=== PATIENT | female | born 1945 | race Caucasian/White ===

== ENCOUNTER 2017-05-05 13:40 | Day surgery (SDC) | payer MEDICARE, BC ==
[~2017-05-05 13:40] MED LIST: EPINEPHRINE INJ 1 MG/10 ML DISP.SYRIN ONE; FLUMAZENIL INJ 0.5 MG/5 ML VIAL ONE; GLUCAGON,HUMAN RECOMB 1 MG INJ ONE; NALOXONE HCL INJ/PF 0.4 MG/1 ML SDV ONE
[2017-05-05] MEDS: MIDAZOLAM 2 MG/2 ML INJ ONE ×6 (15:26→16:04)
[2017-05-05] MEDS: FENTANYL CITRATE INJ/PF 100 MCG/2 ML AMPUL ONE ×2 (15:28→16:14)
[2017-05-05] MEDS ORDERED: INDOMETHACIN 50 MG SUPP.RECT PR ONE (16:30)
--- NOTE | 2017-05-05 16:46 | Operative Report ---
Operative Report DATE OF SURGERY: 05/05/17 Operative Report: Pre-op diagnosis: Recurrent chest pain, abnormal liver function tests and dilated biliary tree Post-op diagnosis: 1. Markedly dilated common bile duct and moderately dilated intrahepatic ducts 2. Common bile duct stone 3. Normal pancreatic duct Surgery: ERCP with sphincterotomy, attempted stone extraction and stent placement Medications: Versed 8mg Fentanyl 150mcg IV push Tissue removed: None Procedure: After informed consent obtained from patient, the throat was sprayed with Hurricane and conscious sedation was achieved. The ERCP endoscope was then inserted into the esophagus blindly and advanced into the stomach. The duodenum was entered and the ampulla was identified. Using the triple-lumen sphincterotomy catheter the pancreatic duct was initially cannulated. A pancreatogram was normal. The common bile duct was then freely cannulated. A cholangiogram was obtained which showed marked dilation of the common bile ducts and moderate dilation of the intrahepatic ducts. A good sized sphincterotomy was then performed using the endocut mode. The catheter was removed over the guidewire before a 9-12 mm balloon catheter was inserted. The balloon was inflated to 12 mm in the proximal common bile duct and pulled down the duct. Some sludge was extracted but I could not grasp the stone with the balloon as the balloon was smaller than the diameter of the bile ducts. A 3 cm basket wire was then used but again it was difficult to grab the stone within the wire strands. A larger 15 mm balloon was used which I was able to use to pull the stone to the distal common bile duct but a stone also kept slipping off the balloon. Patient started to get more agitated and I decided to place a 5 cm 10 [place] stent. Patient tolerated procedure well. Findings Common bile duct: Markedly dilated with a small round stone. The stone had an oblong opacity in the middle that may be a surgical clip. Intrahepatic ducts: Moderate dilation Pancreatic duct: Normal Plan: We will allow bile flow to improve and hopefully leading to a reduction in the size of the common bile duct. Will repeat ERCP in 6-8 weeks with removal of the stone. Indometacin 100 mg was given per rectum OPERATION: .
[2017-05-05] MEDS ORDERED: ONDANSETRON HCL INJ/PF 4 MG/2 ML SDV ONE ×2 (17:16→17:17)
[2017-05-05 18:02] VITALS: BP 161/74
--- NOTE | 2017-05-05 20:49 | RADIOLOGY REPORT (SQ) ---
EXAM DESCRIPTION: ENDO CATH BILI/PANCREATIC COMPLETED DATE/TIME: 05/05/2017 4:42 pm REASON FOR STUDY: ERCP R94.5 ABNORMAL RESULTS OF LIVER FUNCTION STUDIES COMPARISON: None. FLUOROSCOPY TIME: 10.7 MINUTES TECHNIQUE: Intra-operative images acquired during surgical procedure to evaluate progress. NUMBER OF IMAGES: 10 images. LIMITATIONS: None. FINDINGS: Fluoroscopic images during ERCP demonstrates opacification of the intra and extrahepatic b iliary ducts and the pancreatic duct. There is significant dilatation of the common bile duct and in trahepatic ducts. Subsequent images demonstrates balloon sweeping of the common bile duct and placem ent of stent. No gross complication. IMPRESSION: IMAGE(S) OBTAINED DURING PROCEDURE. COMMENT: Quality ID [id number]: Final reports for procedures using fluoroscopy that document radiation exp osure indices, or exposure time and number of fluorographic images (if radiation exposure indices are not available) Please consult full operative report of the attending physician for description of the procedure. TECHNICAL DOCUMENTATION: JOB ID: [id number] [employer]- All Rights Reserved
== END 2017-05-05 17:50 | disposition home or self-care (01) ==
LOC: END 13:40
PROVIDERS: ATTEND Internal Medicine Gastroenterology
PROC: 0FC98ZZ Extirpation of Matter from Common Bile Duct, Via Natural or Artificial Opening Endoscopic (ICD-10-PCS; principal; 2017-05-05 14:30)
PROC: 0F798ZZ Dilation of Common Bile Duct, Via Natural or Artificial Opening Endoscopic (ICD-10-PCS; 2017-05-05 14:30)
PROC: 0F758DZ Dilation of Right Hepatic Duct with Intraluminal Device, Via Natural or Artificial Opening Endoscopic (ICD-10-PCS; 2017-05-05 14:30)
DX: K80.50 Calculus of bile duct without cholangitis or cholecystitis without obstruction (principal); K83.8 Other specified diseases of biliary tract; K21.9 Gastro-esophageal reflux disease without esophagitis; K58.9 Irritable bowel syndrome, unspecified; I10 Essential (primary) hypertension; Z79.899 Other long term (current) drug therapy
CPT/HCPCS: 43264; 43262; 43274; 74330; C2617; J2250; J3010; J1610; J2405; A9270; J0171; J2310; J3490

== ENCOUNTER 2017-09-19 14:28 | Day surgery (SDC) | payer MEDICARE, BC ==
[2017-09-19] MEDS ORDERED: EPINEPHRINE INJ 1 MG/10 ML DISP.SYRIN ONE (15:12)
[2017-09-19] MEDS ORDERED: GLUCAGON,HUMAN RECOMB 1 MG INJ ONE (15:12)
[2017-09-19 15:32] LABS: ALANINE AMINOTRANSFERASE 27 U/L (9-52); ALBUMIN 4.7 g/dL (3.5-5.0); ALKALINE PHOSPHATASE 66 U/L (38-126); ANION GAP 11 (5-19); ASPARTATE AMINO TRANSFERASE 29 U/L (14-36); BILIRUBIN,DIRECT 0.2 mg/dL (0.0-0.4); BILIRUBIN,TOTAL 0.9 mg/dL (0.2-1.3); BLOOD UREA NITROGEN 11 mg/dL (7-20); CALCIUM 10.8 mg/dL (8.4-10.2); CARBON DIOXIDE 27 mmol/L (22-30); CHLORIDE 95 mmol/L (98-107); GLUCOSE 84 mg/dL (75-110); POTASSIUM 3.7 mmol/L (3.6-5.0); SODIUM 132.6 mmol/L (137-145); TOTAL PROTEIN 6.9 g/dL (6.3-8.2)
[2017-09-19] MEDS ORDERED: LIDOCAINE 2% INJ-PF (20 MG/ML) 10 ML AMPUL ONE (15:40)
[2017-09-19] MEDS ORDERED: FENTANYL CITRATE INJ/PF 100 MCG/2 ML AMPUL ONE ×2 (15:40→16:55)
[2017-09-19] MEDS ORDERED: MIDAZOLAM 2 MG/2 ML INJ ONE (15:41)
[2017-09-19] MEDS ORDERED: PROPOFOL INJ 200 MG/20 ML VIAL IV ONE (15:41)
--- NOTE | 2017-09-19 17:26 | Operative Report ---
Operative Report DATE OF SURGERY: 09/19/17 Operative Report: Pre-op diagnosis: History of common bile duct stone status post stent placement Post-op diagnosis: 1. CBD stone 2. Dilated biliary tree Surgery: ERCP with stent removal, and stone extraction Medications: As per anesthesia Tissue removed: None Procedure: After informed consent obtained from patient, the throat was sprayed with Hurricane and conscious sedation was achieved. The ERCP endoscope was then inserted into the esophagus blindly and advanced into the stomach. The duodenum was entered and the ampulla was identified. Using the balloon catheter the pancreatic duct was initially cannulated. A partial pancreatogram was normal. The catheter was then passed freely into the common bile duct where a cholangiogram shows a diffusely dilated common bile duct with mild dilation of the intrahepatic ducts. A filling defect with a central linear opacity was identified in the proximal common bile duct. This was difficult to remove using the balloon catheter as the stone was sliding off the balloon. A 2.5 cm basket catheter was then inserted into the common bile duct and after trying for a while I was able to grasp the stone and pulled it out of the duct. A balloon occlusion cholangiogram was normal. Patient tolerated procedure well. Findings Common bile duct: Moderately dilated. 8-10 mm black, smooth stone Intrahepatic ducts: Mildly dilated Pancreatic duct: Normal proximal duct Plan: Follow-up as needed. LFTs were normal today OPERATION: .
--- NOTE | 2017-09-19 17:50 | RADIOLOGY REPORT (SQ) ---
EXAM DESCRIPTION: ENDO CATH/BILIARY DUCT COMPLETED DATE/TIME: 09/19/2017 5:21 pm REASON FOR STUDY: ERCP K83.8 OTHER SPECIFIED DISEASES OF BILIARY TRACT COMPARISON: None. FLUOROSCOPY TIME: 7.7 minutes 11 images saved to PACS. TECHNIQUE: Intra-operative images acquired during surgical procedure to evaluate progress. NUMBER OF IMAGES: 11 LIMITATIONS: None. FINDINGS: Selected images from ERCP. There is opacification of dilated common bile duct. IMPRESSION: IMAGE(S) OBTAINED DURING PROCEDURE. COMMENT: Quality ID [id number]: Final reports for procedures using fluoroscopy that document radiation exp osure indices, or exposure time and number of fluorographic images (if radiation exposure indices are not available) Please consult full operative report of the attending physician for description of the procedure. TECHNICAL DOCUMENTATION: JOB ID: [id number] [employer]- All Rights Reserved
[2017-09-19] MEDS: MORPHINE SULFATE 10 MG/ML INJ ONE ×3 (18:00→18:30)
[2017-09-19] MEDS ORDERED: ASPIRIN 325 MG TABLET ONE (18:04)
[2017-09-19] MEDS ORDERED: SIMETHICONE 80 MG TAB.CHEW PO ONE (18:15)
[2017-09-19 18:41] LABS: ALANINE AMINOTRANSFERASE 32 U/L (9-52); ALBUMIN 4.2 g/dL (3.5-5.0); ALKALINE PHOSPHATASE 62 U/L (38-126); ANION GAP 8 (5-19); ASPARTATE AMINO TRANSFERASE 31 U/L (14-36); BILIRUBIN,DIRECT 0.2 mg/dL (0.0-0.4); BILIRUBIN,TOTAL 0.8 mg/dL (0.2-1.3); BLOOD UREA NITROGEN 10 mg/dL (7-20); CALCIUM 10.4 mg/dL (8.4-10.2); CARBON DIOXIDE 29 mmol/L (22-30); CHLORIDE 96 mmol/L (98-107); CREATINE KINASE 129 U/L (30-135); GLUCOSE 99 mg/dL (75-110); PHOSPHORUS 2.9 mg/dL (2.5-4.5); POTASSIUM 3.9 mmol/L (3.6-5.0); SODIUM 133.3 mmol/L (137-145); TOTAL PROTEIN 6.1 g/dL (6.3-8.2)
[2017-09-19 18:52] LABS: CREATINE KINASE MB 2.15 ng/mL (<4.55)
[2017-09-19 18:55] LABS: TROPONIN I < 0.012 ng/mL
--- NOTE | 2017-09-19 20:26 | EKG REPORT ---
SEVERITY:- NORMAL ECG - SINUS RHYTHM : Confirmed by: Merle Wright 19-Sep-2017 20:26:11
--- NOTE | 2017-09-19 20:26 | EKG REPORT ---
SEVERITY:- ABNORMAL ECG - SINUS RHYTHM : Confirmed by: Merle Wright 19-Sep-2017 20:26:01
[2017-09-19] MEDS ORDERED: MORPHINE SULFATE 10 MG/ML INJ IV PRN (20:57)
[2017-09-19] MEDS ORDERED: ONDANSETRON HCL INJ/PF 4 MG/2 ML SDV IV PRN (20:58)
[2017-09-19] MEDS ORDERED: NORMAL SALINE 500 ML IV ONE (21:00)
[2017-09-19] MEDS ORDERED: LANSOPRAZOLE 30 MG TAB.RAP.DR PO ONE (21:30)
[2017-09-19] MEDS: NORMAL SALINE 1000 ML 1,000 ML IV PRN (21:41)
[2017-09-20] MEDS: SUCRALFATE 1 GM TABLET PO SCH ×2 (01:12→05:00)
[2017-09-20] MEDS: NORMAL SALINE 1000 ML 1,000 ML IV PRN (02:34)
[2017-09-20] MEDS ORDERED: LANSOPRAZOLE 30 MG TAB.RAP.DR PO SCH (06:00)
[2017-09-20 06:51] LABS: HEMATOCRIT 33.7 % (36.0-47.0); HEMOGLOBIN 11.7 g/dL (12.0-15.5); MEAN CORPUSCULAR HEMOGLOBIN 32.2 pg (27.0-33.4); MEAN CORPUSCULAR HGB CONC 34.7 g/dL (32.0-36.0); MEAN CORPUSCULAR VOLUME 93 fl (80-97); PLATELET COUNT 204 10^3/uL (150-450); RED BLOOD COUNT 3.63 10^6/uL (3.72-5.28); RED CELL DISTRIBUTION WIDTH 12.8 % (11.5-14.0); WHITE BLOOD COUNT 9.8 10^3/uL (4.0-10.5)
[2017-09-20 07:10] LABS: ALANINE AMINOTRANSFERASE 28 U/L (9-52); ALBUMIN 3.2 g/dL (3.5-5.0); ALKALINE PHOSPHATASE 48 U/L (38-126); ASPARTATE AMINO TRANSFERASE 30 U/L (14-36); BILIRUBIN,DIRECT 0.2 mg/dL (0.0-0.4); BILIRUBIN,TOTAL 0.6 mg/dL (0.2-1.3); LIPASE 91.4 U/L (23-300); TOTAL PROTEIN 5.1 g/dL (6.3-8.2)
[2017-09-20 09:10] VITALS: BP 124/66
== END 2017-09-20 12:00 | disposition home or self-care (01) ==
LOC: OROUT 14:28 → 2N 20:36 → OROUT 09-20 12:00
PROVIDERS: ATTEND Internal Medicine Gastroenterology
PROC: 0FPB8DZ Removal of Intraluminal Device from Hepatobiliary Duct, Via Natural or Artificial Opening Endoscopic (ICD-10-PCS; principal; 2017-09-19 14:45)
PROC: 0FC98ZZ Extirpation of Matter from Common Bile Duct, Via Natural or Artificial Opening Endoscopic (ICD-10-PCS; 2017-09-19 14:45)
DX: K83.8 Other specified diseases of biliary tract (principal); K80.50 Calculus of bile duct without cholangitis or cholecystitis without obstruction; I10 Essential (primary) hypertension; D64.9 Anemia, unspecified; K21.9 Gastro-esophageal reflux disease without esophagitis; Z79.899 Other long term (current) drug therapy
CPT/HCPCS: 43275; 43264; 36415; 82553; 82550; 83690; 83735; 84100; 85027; 80076; 80053; 84484; 74328; 93005; 93010; J2250; A9270 ×5; J2270; J2405; J7030 ×2; J2704; J3490; 732; J0171; J1610; J3010

== ENCOUNTER 2018-01-11 23:13 | Emergency (ER) | payer MEDICARE, BC ==
[2018-01-11 23:20] VITALS: BP 164/83
--- NOTE | 2018-01-12 00:05 | ER Document Report ---
ED GI/ - General Mode of Arrival: Ambulatory Information source: Patient TRAVEL OUTSIDE OF THE [place] IN LAST 30 DAYS: No - General Chief Complaint: Abdominal Pain Stated Complaint: ABDOMINAL PAIN Time Seen by Provider: 01/11/18 23:29 Notes: Patient is a 72 year old female with a history of HTN and chronic constipation presents to the emergency department accompanied by family complaining of right lower abdominal pain, diffuse abdominal cramping and constipation onset today. Patient states that it has been hard for her to have a bowel movement stating that she frequently has the urge to have a bowel movement but is unable to do so. Patient states she did have gas and diarrhea today and her last bowel movement before today was 3 days ago which was described as explosive diarrhea with associated vomiting. Patient states she has always been a very gassy person further stating she is always burping as well as passing gas. Patient denies any fevers. Patient was previously prescribed narcotics although she discontinued taking them 5 days ago after receiving an epidural steroid injection to the L4-L5 at [facility] pain management. Patient has also had 2 CT scans within the last year which has showed no significant abnormalities. She also mentions having an ERCP, removing stones which provided a significant amount of relief of chronic abdominal pain. Patient is currently taking Citrucel, Laxilose and Losartan. (ALEXI WALDRON) - Related Data Allergies/Adverse Reactions: No Known Allergies Allergy (Verified 09/19/17 15:16) Past Medical History - General Information source: Patient - Social History Smoking Status: Former Smoker Cigarette use (# per day): No Chew tobacco use (# tins/day): No Smoking Education Provided: No Frequency of alcohol use: None Family History: Reviewed & Not Pertinent - Past Medical History Cardiac Medical History: Reports: Hx Hypertension Endocrine Medical History: Reports: Other GI Medical History: Reports: Other - Cholecystectomy Musculoskeltal Medical History: Reports Hx Arthritis Past Surgical History: Reports: Hx Hysterectomy, Hx Orthopedic Surgery - Left Hip - Immunizations Hx Diphtheria, Pertussis, Tetanus Vaccination: Yes Review of Systems - Review of Systems Constitutional: No symptoms reported EENT: No symptoms reported Cardiovascular: No symptoms reported Respiratory: No symptoms reported Gastrointestinal: See HPI, Abdominal pain, Diarrhea, Nausea, Vomiting, Constipation Genitourinary: No symptoms reported Female Genitourinary: No symptoms reported Musculoskeletal: No symptoms reported Skin: No symptoms reported Hematologic/Lymphatic: No symptoms reported Neurological/Psychological: No symptoms reported -: Yes All other systems reviewed and negative Physical Exam - Vital signs Vitals: Temp Pulse Resp BP Pulse Ox 98.3 F 71 20 164/83 H 98 01/11/18 23:19 01/11/18 23:19 01/11/18 23:19 01/11/18 23:19 01/11/18 23:19 - Notes Notes: GENERAL: Alert, interacts well. No acute distress. HEAD: Normocephalic, atraumatic. EYES: Pupils equal, round, and reactive to light. Extraocular movements intact. ENT: Oral mucosa moist, tongue midline. NECK: Full range of motion. Supple. Trachea midline. No Bruits. LUNGS: Expiratory wheezes. No rales or rhonchi. No respiratory distress. HEART: Regular rate and rhythm. No murmurs, gallops, or rubs. ABDOMEN: Soft, tender to palpation to the RLQ, hyperresonant to percussion. Hyperactive bowel sounds. EXTREMITIES: Moves all 4 extremities spontaneously. NEUROLOGICAL: Alert and oriented x3. Normal speech. PSYCH: Normal affect, normal mood. SKIN: Warm, dry, normal turgor. No rashes or lesions noted. (ALEXI WALDRON) - Vital Signs Vital signs: Temp Pulse Resp BP Pulse Ox 98.3 F 71 20 164/83 H 98 01/11/18 23:19 01/11/18 23:19 01/11/18 23:19 01/11/18 23:19 01/11/18 23:19 Discharge - Discharge Clinical Impression: Abdominal bloating with cramps, Anxiety Condition: Stable Disposition: HOME, SELF-CARE Additional Instructions: Anxiety: The physician feels that some of your health problems are being caused by anxiety. Anxiety affects your health in many ways. Anxiety alone can cause palpitations, sweats, chest pains, abdominal pains, shortness of breath, and headaches. It contributes to ulcer disease, high blood pressure, irritable bowel syndrome, and has been shown to cause flare-ups of many other diseases. Anxiety is not a simple disorder to treat. If the anxiety is due to recent life stresses, you may simply need time to "work through" the changes. If the anxiety is due to an underlying unhappiness with yourself or due to psychiatric disturbance, professional help will be needed. Your physician can refer you for further help if needed. Anti-anxiety medication is occasionally given if the stress is acute or if you are having trouble sleeping. Chronic or frequent use of these medications is not a good idea because the body becomes reliant on it, preventing you from dealing with life's normal stresses. Abdominal Pain: There are many causes of abdominal pain. Pain can mean a serious problem requiring surgery (such as appendicitis). It can also be an innocent problem that goes away on its own (such as a viral infection). Often, time must pass to determine the cause of pain. The physician does not feel that hospitalization is necessary, at present. Things may change within the next 24 hours. Call the doctor or come back for re- examination if any problems occur, such as: (1) Pain that becomes more severe, steady, or becomes concentrated in one specific area. Also, pain that is more severe with movement or coughing. (2) Vomiting that persists or becomes more frequent. (3) Blood in the vomitus, urine, or bowel movements. Blood in the stool may have a tarry or black appearance. (4) Shaking chills or fever greater than 100 degrees F. (5) The abdomen becomes more distended or swollen. (6) Bowel movements cease. (7) Failure to improve as expected. Your abdominal x-ray showed considerable amount of gas in the intestines. This is a likely source for your cramps and discomfort. You also do seem to have a very amount of anxiety about your abdominal cramps and constipation issues. In addition to the MiraLAX, try taking something like Charcocaps to reduce the amount of intestinal gas. Take the Xanax as prescribed for anxiety or sleep for the next few days if needed. Follow-up with Dr. Eweje next week and with your primary care provider for recheck. RETURN TO THE EMERGENCY ROOM IF ANY NEW OR WORSENING SYMPTOMS. Prescriptions: Alprazolam [Xanax 0.25 mg Tablet] 0.25 mg PO Q8 PRN #15 tablet PRN Reason: Anxiety Referrals: JOSE DANGELO MD [ACTIVE STAFF] - Follow up as needed Scribe Attestation: 01/12/18 00:48 I personally performed the services described in the documentation, reviewed and edited the documentation which was dictated to the scribe in my presence, and it accurately records my words and actions. (ANGEL HART) Scribe Documentation - Scribe Written by Toby:: Toby Guerrero, 01/12/2018 00:40 acting as scribe for :: Erick
[2018-01-12] MEDS ORDERED: ALPRAZOLAM 0.5 MG TABLET PO ONE (00:42)
--- NOTE | 2018-01-12 03:48 | RADIOLOGY REPORT (SQ) ---
EXAM DESCRIPTION: CR acute abdominal series CLINICAL HISTORY: 72 years Female, Constipation, right lower quadrant abdominal pain COMPARISON: None. NUMBER OF VIEWS/TECHNIQUE: 3 LIMITATIONS: None. FINDINGS: Intestinal gas pattern is within normal limits. Right upper abdominal clips. No suspicious calcification. Grossly intact skeletal structures. No acute cardiopulmonary findings. Moderate lumbar levoconvex E. Atherosclerosis. Hardware fixation of the proximal left femur. IMPRESSION: No acute findings.
== END 2018-01-12 00:52 | disposition home or self-care (01) ==
LOC: ER 23:13
DX: R14.0 Abdominal distension (gaseous) (principal); F41.9 Anxiety disorder, unspecified; R10.30 Lower abdominal pain, unspecified; I10 Essential (primary) hypertension; Z90.710 Acquired absence of both cervix and uterus; R19.7 Diarrhea, unspecified; R11.2 Nausea with vomiting, unspecified; K59.00 Constipation, unspecified
CPT/HCPCS: 99284; 74022; A9270